=== PATIENT | male | born 1965 | race Caucasian/White ===

== ENCOUNTER 2017-12-31 17:46 | Observation (INO) | payer OTHER ==
[~2017-12-31] VITALS: Ht 188 cm; Wt 113.6 kg
[2017-12-31 18:40] LABS: HEMATOCRIT 45.2 % (38.0-50.0); HEMOGLOBIN 15.7 G/DL (12.5-16.6); MCH 32.3 PG (29.0-34.0); MCHC 34.7 G/DL (30.0-36.0); PLATELET COUNT 319 K/uL (156-360); RBC DIS.WIDTH-CV 13.8 % (11.8-14.6); RED BLOOD COUNT 4.86 M/uL (4.00-5.50); WHITE BLOOD COUNT 9.2 K/uL (4.1-10.2)
[2017-12-31 18:52] LABS: CHLORIDE 106 mEq/L (99-109); POTASSIUM 4.3 mEq/L (3.7-5.4); SODIUM 139 mEq/L (136-147)
[2017-12-31 18:54] LABS: GLUCOSE 94 mg/dL (70-99)
[2017-12-31 18:58] LABS: CREATININE 0.9 mg/dL (0.6-1.3); UREA NITROGEN (BUN) 12 mg/dL (9-23)
[2017-12-31 18:59] LABS: GFR ESTIMATE (CALCULATED) > 59 mL/min/ (58.99-99999)
[2017-12-31 19:03] LABS: TROP-I INTERPRETATION NEGATIVE; TROPONIN-I 0.08 ng/mL (0.0-0.30)
[2017-12-31 20:22] LABS: D-DIMER ELISA < 150.00 ng/mLDDU (<230)
[2017-12-31] MEDS ORDERED: LISINOPRIL10 MG PO (22:00)
[2017-12-31 22:49] VITALS: BP 132/80
[2018-01-01 01:07] LABS: TROP-I INTERPRETATION NEGATIVE; TROPONIN-I 0.06 ng/mL (0.0-0.30)
[2018-01-01 03:51] VITALS: BP 105/56
[2018-01-01 05:49] LABS: TROP-I INTERPRETATION NEGATIVE; TROPONIN-I 0.06 ng/mL (0.0-0.30)
[2018-01-01 06:12] LABS: HDL CHOLESTEROL 40 MG/DL (Desirable>=40); LDL CHOLESTEROL 122 mg/dL (Desirable<100); NON-HDL CHOLESTEROL 198 mg/dL (Desirable<160); TOTAL CHOLESTEROL 238 mg/dL (Desirable<200); TRIGLYCERIDES 382 MG/DL (Normal: <150)
[2018-01-01 06:57] VITALS: BP 132/78
[2018-01-01 11:16] VITALS: BP 136/80
[2018-01-01] MEDS ORDERED: PRAVASTATIN SOD80 MG PO (11:22)
[2018-01-01] MEDS ORDERED: NICOTINE PATCH1 EAC2 TD (11:22)
[2018-01-01] MEDS ORDERED: NITROSTAT0.4 MG SL (11:23)
[2018-01-01] MEDS ORDERED: LOPRESSOR25 MG PO (11:23)
[2018-01-01] MEDS ORDERED: ASPIR-LOW81 MG PO (11:23)
[2018-01-01 11:45] LABS: HEMOGLOBIN A1c (GLYCOHEMOGLOB) 5.9 % (Below 5.7)
== END 2018-01-01 13:01 | disposition home or self-care (01) ==
LOC: EME 17:46 → EDOF 21:28 → 5WEST 21:28 → ENRESERV 21:33 → 5WEST 22:32 → ENPENDDIS 01-01 → 5WEST 01-01 13:01
PROVIDERS: Family Medicine
DX: R07.9 Chest pain, unspecified (principal); R94.31 Abnormal electrocardiogram [ECG] [EKG]; I10 Essential (primary) hypertension; Z82.49 Family history of ischemic heart disease and other diseases of the circulatory system; R73.01 Impaired fasting glucose; E78.5 Hyperlipidemia, unspecified; R06.02 Shortness of breath; F17.210 Nicotine dependence, cigarettes, uncomplicated
CPT/HCPCS: 71046; 80048; 80061; 83036; 84484; 85027; 85379; 93005; 94640; 94664; 99281; 99284; G0378

== ENCOUNTER 2018-01-08 07:24 | Day surgery (SDC) | payer OTHER ==
[~2018-01-08] VITALS: Ht 188 cm; Wt 118.6 kg
[~2018-01-08 07:24] MED LIST: ASPIR-LOW81 MG PO; LISINOPRIL10 MG PO; LOPRESSOR25 MG PO; NICOTINE PATCH1 EAC2 TD; NITROSTAT0.4 MG SL; OMEPRAZOLE40 M1 PO; PRAVASTATIN SOD80 MG PO
[2018-01-08 19:58] VITALS: BP 132/74
[2018-01-09 00:22] VITALS: BP 114/67
[2018-01-09 04:23] VITALS: BP 118/74
[2018-01-09 05:48] LABS: BASOPHIL (%) 0.7 % (0-1); BASOPHIL COUNT 0.1 K/uL (0-0.1); CHLORIDE 108 mEq/L (99-109); EOSINOPHIL (%) 5.9 % (0-5); EOSINOPHIL COUNT 0.6 K/uL (0-0.3); HEMATOCRIT 44.2 % (38.0-50.0); HEMOGLOBIN 14.7 G/DL (12.5-16.6); IMMATURE GRANULOCYTE (%) 0.5 % (0.0-0.7); LYMPHOCYTE (%) 29.4 % (15-42); LYMPHOCYTE COUNT 2.9 K/uL (1.0-2.8); MCH 30.8 PG (29.0-34.0); MCHC 33.3 G/DL (30.0-36.0); MCV 92.7 FL (86-99); MONOCYTE (%) 11.3 % (3-12); MONOCYTE COUNT 1.1 K/uL (0-0.8); NEUTROPHIL (%) 52.2 % (45-76); NEUTROPHIL COUNT 5.1 K/uL (1.8-6.4); PLATELET COUNT 339 K/uL (156-360); RBC DIS.WIDTH-CV 13.1 % (11.8-14.6); RBC DIS.WIDTH-SD 45.2 % (39-53); RED BLOOD COUNT 4.77 M/uL (4.00-5.50); WHITE BLOOD COUNT 9.7 K/uL (4.1-10.2)
[2018-01-09 05:49] LABS: POTASSIUM 4.6 mEq/L (3.7-5.4); SODIUM 140 mEq/L (136-147)
[2018-01-09 05:50] LABS: GLUCOSE 106 mg/dL (70-99)
[2018-01-09 05:54] LABS: CREATININE 0.9 mg/dL (0.6-1.3); GFR ESTIMATE (CALCULATED) > 59 mL/min/ (58.99-99999)
[2018-01-09 05:55] LABS: UREA NITROGEN (BUN) 9 mg/dL (9-23)
[2018-01-09 08:41] VITALS: BP 136/82
[2018-01-09 11:50] VITALS: BP 149/68
[2018-01-09] MEDS ORDERED: ASPIR-LOW81 MG PO (12:01)
[2018-01-09] MEDS ORDERED: BRILINTA90 MG PO (12:01)
== END 2018-01-09 13:55 | disposition home or self-care (01) ==
LOC: CATH 07:24 → 4EAST 11:10 → 2SOUTH 11:10 → ENRESERV 11:50 → 4EAST 14:11
PROVIDERS: Internal Medicine Interventional Cardiology
PROC: B2111ZZ Fluoroscopy of Multiple Coronary Arteries using Low Osmolar Contrast (ICD-10-PCS; principal; 2018-01-08)
PROC: 027035Z Dilation of Coronary Artery, One Artery with Two Drug-eluting Intraluminal Devices, Percutaneous Approach (ICD-10-PCS; principal; 2018-01-08)
PROC: 4A023N7 Measurement of Cardiac Sampling and Pressure, Left Heart, Percutaneous Approach (ICD-10-PCS; principal; 2018-01-08)
PROC: B2151ZZ Fluoroscopy of Left Heart using Low Osmolar Contrast (ICD-10-PCS; principal; 2018-01-08)
DX: I25.10 Atherosclerotic heart disease of native coronary artery without angina pectoris (principal); I25.82 Chronic total occlusion of coronary artery; I10 Essential (primary) hypertension; E78.5 Hyperlipidemia, unspecified; F17.210 Nicotine dependence, cigarettes, uncomplicated; Z82.49 Family history of ischemic heart disease and other diseases of the circulatory system; F10.10 Alcohol abuse, uncomplicated; Z79.82 Long term (current) use of aspirin
CPT/HCPCS: 80048; 85025; 85347; 93005; C1725; C1769; C1874; C1887; G0378; J1200; J1644; J2250; J7030

== ENCOUNTER 2018-02-13 22:01 | Emergency (ER) | payer OTHER ==
[~2018-02-13] VITALS: Ht 188 cm; Wt 111.7 kg
[~2018-02-13 22:01] MED LIST changes: +BRILINTA90 MG PO
[2018-02-13 23:18] LABS: HEMATOCRIT 41.6 % (38.0-50.0); HEMOGLOBIN 14.5 G/DL (12.5-16.6); MCH 31.3 PG (29.0-34.0); MCHC 34.9 G/DL (30.0-36.0); MCV 89.8 FL (86-99); PLATELET COUNT 310 K/uL (156-360); RBC DIS.WIDTH-CV 13.2 % (11.8-14.6); RBC DIS.WIDTH-SD 43.3 % (39-53); RED BLOOD COUNT 4.63 M/uL (4.00-5.50); WHITE BLOOD COUNT 9.8 K/uL (4.1-10.2)
[2018-02-13 23:32] LABS: ALBUMIN 4.5 g/dL (3.2-4.8); CHLORIDE 105 mEq/L (99-109); SODIUM 140 mEq/L (136-147)
[2018-02-13 23:35] LABS: GLUCOSE 105 mg/dL (70-99); TOTAL PROTEIN 7.2 g/dL (6.4-8.3)
[2018-02-13 23:36] LABS: TOTAL BILIRUBIN 0.4 mg/dL (0.0-1.0)
[2018-02-13 23:38] LABS: ALKALINE PHOSPHATASE 87 IU/L (3-129); GFR ESTIMATE (CALCULATED) > 59 mL/min/ (58.99-99999)
[2018-02-13 23:39] LABS: UREA NITROGEN (BUN) 13 mg/dL (9-23)
[2018-02-13 23:40] LABS: AST (GOT) 27 IU/L (2-34)
[2018-02-13 23:41] LABS: ALT (GPT) 62 IU/L (3-49)
[2018-02-14 01:54] VITALS: BP 115/75
== END 2018-02-14 01:54 | disposition home or self-care (01) ==
LOC: EME 22:01
PROVIDERS: Emergency Medicine
PROC: 0HQ0XZZ Repair Scalp Skin, External Approach (ICD-10-PCS; principal; 2018-02-13)
DX: S01.01XA Laceration without foreign body of scalp, initial encounter (principal); S01.511A Laceration without foreign body of lip, initial encounter; S01.112A Laceration without foreign body of left eyelid and periocular area, initial encounter; V86.55XA Driver of 3- or 4- wheeled all-terrain vehicle (ATV) injured in nontraffic accident, initial encounter; F10.129 Alcohol abuse with intoxication, unspecified; F17.200 Nicotine dependence, unspecified, uncomplicated
CPT/HCPCS: 70450; 70486; 71260; 72125; 74177; 80053; 85027; 99281; 99285